=== PATIENT | female | born 2000 | race Two or more races ===

== ENCOUNTER 2023-04-27 04:52 | Emergency (ER) | payer MEDICAID ==
[~2023-04-27] VITALS: Ht 165.1 cm; Wt 90.0 kg
[2023-04-27] MEDS ORDERED: IBUPROFEN 400 MG TAB PO ONE (05:15)
[2023-04-27] MEDS ORDERED: ACETAMINOPHEN 500 MG TAB PO ONE (05:30)
[2023-04-27 06:26] LABS: COVID19 ANTIGEN SOFIA FIA NEGATIVE (NEGATIVE)
[2023-04-27 06:29] LABS: Rapid Influenza A Positive (Negative); Rapid Influenza B Negative (Negative)
[2023-04-27 07:51] VITALS: BP 106/62; PULSE 101; RESP 12; TEMP 99.3; O2SAT 98
[2023-04-27] MEDS ORDERED: CEPHALEXIN 250 MG CAP PO ONE (08:15)
[2023-04-27] MEDS ORDERED: diphenhdrAMINE HCL 12.5 MG/5 ML UD PO ONE (08:15)
[2023-04-27] MEDS ORDERED: CEPH250C PO (08:37)
[2023-04-27] MEDS ORDERED: DIPH25CA66 PO (08:37)
== END 2023-04-27 08:49 | disposition home or self-care (01) ==
LOC: ER 04:52
DX: O26.892 Other specified pregnancy related conditions, second trimester (principal); J10.1 Influenza due to other identified influenza virus with other respiratory manifestations; Z20.822 Contact with and (suspected) exposure to COVID-19; Z3A.16 16 weeks gestation of pregnancy
CPT/HCPCS: 36415; 87426; 87804

== ENCOUNTER → 2023-05-30 | Outpatient (CLI) | payer MEDICAID ==
[~2023-05-30] MED LIST: CEPH250C PO; DIPH25CA66 PO
[2023-05-30 10:59] LABS: Basophils # (auto) 0 10 ^3/uL (0-0.2); Basophils % (auto) 0.1 % (0.0-2.0); Eosinophils # (auto) 0.1 10 ^3/uL (0-0.8); Eosinophils % (auto) 1.5 % (0.0-7.0); Hematocrit 37.2 % (36.0-46.0); Hemoglobin 12.2 g/dL (12.2-16.2); Lymphocytes # (auto) 2.2 10 ^3/uL (0.4-5.4); Lymphocytes % (auto) 25.1 % (10.0-50.0); Mean Corpuscular Hgb Conc. 32.7 g/dL (32.0-36.0); Mean Corpuscular Volume 88.7 fL (80.0-100.0); Monocytes # (auto) 0.6 10 ^3/uL (0-1.3); Monocytes % (auto) 6.3 % (0.0-12.0); Neutrophils # (auto) 5.9 10 ^3/uL (1.6-8.6); Nucleated Red Blood Cells % 0.2 %; Red Cell Distribution Width 13.5 % (11.8-14.3); White Blood Cell 8.8 10^3/uL (4.4-10.8)
[2023-05-30 11:28] LABS: Amphetamine Screen, Urine Neg (NEGATIVE)
[2023-05-30 11:30] LABS: Barbiturate Scree,Urine Neg (NEGATIVE); Benzodiazephine Screen, Urine Neg (NEGATIVE)
[2023-05-30 11:31] LABS: Cannabinoid Screen, Urine Neg (NEGATIVE); Cocaine Screen, Urine Neg (NEGATIVE); Opiate Scree,Urine Neg (NEGATIVE); Phencyclidine Screen, Urine Neg (NEGATIVE)
[2023-05-30 11:34] LABS: Alanine Aminotransferase 25 U/L (7-40); Alkaline Phosphatase 65 U/L (46-116); Anion Gap 6 (5-15); Aspartate Aminotransferase 24 U/L (13-40); Bilirubin, Total 0.3 mg/dL (0.2-1.0); Calcium 9.3 mg/dL (8.5-10.1); Carbon Dioxide 24 mmol/L (20-30); Chloride 105 mmol/L (98-107); Cholesterol 198 mg/dL (< 200); Glucose 64 mg/dL (74-106); HDL Cholesterol 65 mg/dL (40-59); LDL Cholesterol 115 mg/dL (< 100); Potassium 3.7 mmol/L (3.5-5.1); Sodium 135 mmol/L (136-145); Total Protein 6.7 g/dL (5.7-8.2); Triglycerides 215 mg/dL (< 150)
[2023-05-30 11:42] LABS: Beta HCG, Quantitative 9757.7 mIU/mL (1.5-4.2)
[2023-05-30 11:43] LABS: Blood Urea Nitrogen < 5 mg/dL (9-23)
[2023-05-30 11:47] LABS: Thyroid Stimulating Hormone 5.9 uIU/mL (0.55-4.78)
[2023-05-31 07:07] LABS: RPR Non Reactive (Non Reactive)
[2023-05-31 08:07] LABS: Varicella Zoster IgG Antibody 1472 index (Immune >165)
[2023-05-31 23:06] LABS: Chlamydia Trachomatis, NAA Negative (Negative); Neisseria gonorrhoeae, NAA Negative (Negative)
[2023-06-01 14:06] LABS: QuantiFERON-TB Gold Plus Negative (Negative)
== END | disposition home or self-care (01) ==
LOC: LAB 10:15
PROVIDERS: ATTEND Obstetrics & Gynecology
DX: Z31.430 Encounter of female for testing for genetic disease carrier status for procreative management (principal); Z34.00 Encounter for supervision of normal first pregnancy, unspecified trimester; Z36.0 Encounter for antenatal screening for chromosomal anomalies; N39.0 Urinary tract infection, site not specified
CPT/HCPCS: 36415; 80053; 80061; 80307; 83036; 84439; 84443; 84702; 85025; 86592; 86703; 86762; 86787; 86850; 86900; 86901; 87086; 87340

== ENCOUNTER → 2023-09-07 | Outpatient (CLI) | payer MEDICAID ==
[2023-09-07 08:00] LABS: Basophils # (auto) 0 10 ^3/uL (0-0.2); Basophils % (auto) 0.2 % (0.0-2.0); Eosinophils # (auto) 0.2 10 ^3/uL (0-0.8); Eosinophils % (auto) 2.4 % (0.0-7.0); Hematocrit 41.8 % (36.0-46.0); Hemoglobin 13.6 g/dL (12.2-16.2); Lymphocytes % (auto) 29.6 % (10.0-50.0); Mean Corpuscular Hemoglobin 28.9 pg (28.0-32.0); Mean Corpuscular Hgb Conc. 32.5 g/dL (32.0-36.0); Mean Corpuscular Volume 88.9 fL (80.0-100.0); Monocytes # (auto) 0.6 10 ^3/uL (0-1.3); Monocytes % (auto) 6.2 % (0.0-12.0); Neutrophils # (auto) 6.2 10 ^3/uL (1.6-8.6); Neutrophils % (auto) 61.6 % (37.0-80.0); Nucleated Red Blood Cells % 0.1 %; Red Cell Distribution Width 13.2 % (11.8-14.3)
[2023-09-07 08:17] LABS: Alanine Aminotransferase 20 U/L (7-40); Albumin 4.2 g/dL (3.2-4.8); Alkaline Phosphatase 112 U/L (46-116); Anion Gap 6 (5-15); Aspartate Aminotransferase 16 U/L (13-40); Bilirubin, Total 0.2 mg/dL (0.2-1.0); Blood Urea Nitrogen 9 mg/dL (9-23); Calcium 9.9 mg/dL (8.5-10.1); Carbon Dioxide 24 mmol/L (20-30); Chloride 106 mmol/L (98-107); Glucose 87 mg/dL (74-106); Potassium 4.1 mmol/L (3.5-5.1); Sodium 136 mmol/L (136-145); Total Protein 7.1 g/dL (5.7-8.2)
[2023-09-07 09:02] LABS: Amphetamine Screen, Urine Neg (NEGATIVE); Barbiturate Scree,Urine Neg (NEGATIVE); Benzodiazephine Screen, Urine Neg (NEGATIVE); Cannabinoid Screen, Urine Neg (NEGATIVE); Cocaine Screen, Urine Neg (NEGATIVE); Opiate Scree,Urine Neg (NEGATIVE); Phencyclidine Screen, Urine Neg (NEGATIVE)
[2023-09-09 09:06] LABS: Chlamydia Trachomatis, NAA Negative (Negative); Neisseria gonorrhoeae, NAA Negative (Negative)
[2023-09-09 13:06] LABS: RPR Non Reactive (Non Reactive)
== END | disposition home or self-care (01) ==
LOC: LAB 07:31
PROVIDERS: ATTEND Obstetrics & Gynecology
DX: Z34.00 Encounter for supervision of normal first pregnancy, unspecified trimester (principal); Z3A.00 Weeks of gestation of pregnancy not specified
CPT/HCPCS: 36415; 80053; 80307; 82951; 83036; 84439; 84443; 85025; 86592; 86850; 86900; 86901

== ENCOUNTER 2023-10-19 12:13 | Observation (INO) | payer MEDICAID ==
[~2023-10-19 12:13] MED LIST changes: +ACET-1881 PO
[2023-10-19] MEDS ORDERED: PREN-96 PO (13:21)
== END 2023-10-19 13:45 | disposition home or self-care (01) ==
LOC: LDRP 12:13
PROVIDERS: ADMIT Obstetrics & Gynecology; ATTEND Obstetrics & Gynecology
DX: O48.0 Post-term pregnancy (principal); O76 Abnormality in fetal heart rate and rhythm complicating labor and delivery; Z3A.40 40 weeks gestation of pregnancy
CPT/HCPCS: 59025; 81002; 94760; G0378

== ENCOUNTER 2023-10-20 07:00 | Inpatient (IN) | payer MEDICAID ==
[~2023-10-20] VITALS: Ht 165.1 cm; Wt 104.3 kg
[~2023-10-20 07:00] MED LIST changes: +PREN-96 PO
[2023-10-20] MEDS: LACTATED RINGER'S 1,000 ML IV SCH (07:45)
[2023-10-20] MEDS: LACT. RINGERS/OXYTOCIN 20UNITS 1,000 ML IV SCH (07:45)
[2023-10-20] MEDS ORDERED: TERBUTALINE SULFATE 1 MG/ML 1ML VIAL SC PRN (07:45)
[2023-10-20] MEDS ORDERED: BUTORPHANOL TARTRATE 2 MG/1 ML VIAL IV PRN ×2 (07:45)
[2023-10-20 08:22] LABS: Urine WBC None Seen /hpf (0 - 5)
[2023-10-20 08:25] LABS: Basophils # (auto) 0 10 ^3/uL (0-0.2); Basophils % (auto) 0.1 % (0.0-2.0); Eosinophils # (auto) 0.2 10 ^3/uL (0-0.8); Eosinophils % (auto) 1.8 % (0.0-7.0); Hematocrit 40.6 % (36.0-46.0); Hemoglobin 13.4 g/dL (12.2-16.2); Lymphocytes # (auto) 2.1 10 ^3/uL (0.4-5.4); Lymphocytes % (auto) 19.5 % (10.0-50.0); Mean Corpuscular Hemoglobin 29.3 pg (28.0-32.0); Mean Corpuscular Volume 88.9 fL (80.0-100.0); Monocytes # (auto) 0.7 10 ^3/uL (0-1.3); Monocytes % (auto) 6.6 % (0.0-12.0); Neutrophils # (auto) 7.6 10 ^3/uL (1.6-8.6); Nucleated Red Blood Cells % 0.2 %; Red Blood Cells 4.57 10^6/uL (4.0-5.20); Red Cell Distribution Width 13.2 % (11.8-14.3); White Blood Cell 10.6 10^3/uL (4.4-10.8)
[2023-10-20 08:41] LABS: INR 0.92 (0.9-1.15); Prothrombin Time 9.8 sec (9.3-11.8)
[2023-10-20 08:44] LABS: Alanine Aminotransferase 16 U/L (7-40); Albumin 3.9 g/dL (3.2-4.8); Alkaline Phosphatase 137 U/L (46-116); Aspartate Aminotransferase 15 U/L (13-40); BUN/Creatinine Ratio 8.5 (10.0-20.0); Bilirubin, Total 0.2 mg/dL (0.2-1.0); Blood Urea Nitrogen 5 mg/dL (9-23); Calcium 9.6 mg/dL (8.5-10.1); Chloride 107 mmol/L (98-107); Glucose 86 mg/dL (74-106); Potassium 3.9 mmol/L (3.5-5.1); Sodium 135 mmol/L (136-145); Total Protein 6.4 g/dL (5.7-8.2)
[2023-10-20 08:51] LABS: Urine Bacteria FEW /hpf (None Seen); Urine Blood Negative /uL (Negative); Urine Clarity Clear (Clear); Urine Color Light-Yellow (Yellow); Urine Protein, UAD TRACE (Negative); Urine Specific Gravity 1.012 (1.001-1.035); Urine Urobilinogen Normal (Negative)
[2023-10-20 08:54] LABS: Anion Gap 9 (5-15); Carbon Dioxide 19 mmol/L (20-30)
[2023-10-20 09:03] LABS: Amphetamine Screen, Urine Neg (NEGATIVE); Barbiturate Scree,Urine Neg (NEGATIVE); Benzodiazephine Screen, Urine Neg (NEGATIVE); Cannabinoid Screen, Urine Neg (NEGATIVE); Cocaine Screen, Urine Neg (NEGATIVE); Opiate Scree,Urine Neg (NEGATIVE); Phencyclidine Screen, Urine Neg (NEGATIVE)
[2023-10-20] MEDS: METHYLERGONOVINE MALEATE 0.2 MG/ML AMP IM ONE (14:55)
[2023-10-20] MEDS: IBUPROFEN 600 MG TAB PO PRN (15:06)
[2023-10-20] MEDS: miSOPROStol 100 mcg TAB ONE (15:07)
[2023-10-20] MEDS: LACT. RINGERS/OXYTOCIN 20UNITS 500 ML IV ONE ×2 (15:18→15:19)
[2023-10-20] MEDS: LIDOCAINE 2%HCL (LOCAL ANESTH.) INJ 20ML MDV ONE (15:19)
[2023-10-20] MEDS: LIDOCAINE 2%HCL (LOCAL ANESTH.) INJ 20ML MDV IJ PRN (15:20)
[2023-10-20] MEDS: WITCH HAZEL-GLYCERIN PAD TOP PRN (15:23)
[2023-10-20] MEDS: DERMOPLAST 60ML BOTTLE TOP PRN (15:23)
[2023-10-20] MEDS: PHISODERM TOP SOLN 240ML BTL TOP PRN (15:24)
[2023-10-20 18:50] VITALS: BP 115/66; PULSE 98; RESP 17; TEMP 98.2; O2SAT 100
[2023-10-20] MEDS: ACETAMINOPHEN 325 MG TAB PO PRN (20:42)
[2023-10-20] MEDS: DOCUSATE SOD 100 MG CAP PO SCH (22:06)
[2023-10-20 23:00] VITALS: BP 109/61; PULSE 83; RESP 16; TEMP 98.7; O2SAT 97
[2023-10-21 03:00] VITALS: BP 104/57; PULSE 96; RESP 16; TEMP 98.1; O2SAT 97
[2023-10-21 07:00] VITALS: BP 92/52; PULSE 95; RESP 17; TEMP 98.3; O2SAT 98
[2023-10-21 11:00] VITALS: BP 119/71; PULSE 98; RESP 17; TEMP 98.1; O2SAT 100
[2023-10-23 05:07] LABS: RPR Non Reactive (Non Reactive)
== END 2023-10-21 15:05 | disposition home or self-care (01) | DRG 560 ==
LOC: LDRP 07:00 → OBSVTOIN 07:27 → LDRP 17:56
PROVIDERS: ADMIT Obstetrics & Gynecology; ATTEND Obstetrics & Gynecology
PROC: 10E0XZZ Delivery of Products of Conception, External Approach (ICD-10-PCS; principal; 2023-10-20)
PROC: 0KQM0ZZ Repair Perineum Muscle, Open Approach (ICD-10-PCS; 2023-10-20)
DX: O77.0 Labor and delivery complicated by meconium in amniotic fluid (principal); Z37.0 Single live birth; E66.01 Morbid (severe) obesity due to excess calories; O36.63X0 Maternal care for excessive fetal growth, third trimester, not applicable or unspecified; Z3A.40 40 weeks gestation of pregnancy; O99.214 Obesity complicating childbirth; O70.1 Second degree perineal laceration during delivery
CPT/HCPCS: 36415; 59025; 59409; 80053; 80307; 81001; 81002; 85025; 85610; 85730; 86592; 86703; 86850; 86900; 86901; 87340; 94760; 96360; 96361; 96365; 96366; 96372; G0378; J2590